=== PATIENT | female | born 1965 | race American Indian/Alaskan Native ===

== ENCOUNTER 2017-10-27 09:07 | Emergency (ER) | payer SELFPAY ==
[2017-10-27] MEDS: predniSONE 20 MG Tab PO ONE (10:53)
[2017-10-27] MEDS: Diazepam 5 MG Tab PO ONE (10:53)
[2017-10-27] MEDS: Ketorolac 60 MG/2 ML SDV IM ONE (10:53)
--- NOTE | 2017-10-27 11:00 | EDM.PDOC ---
ED HPI GENERAL MEDICAL PROBLEM - General Chief Complaint: Neck Problem Stated Complaint: neck pain Time Seen by Provider: 10/27/17 09:49 Source of Information: Reports: Patient History Limitations: Reports: No Limitations - History of Present Illness INITIAL COMMENTS - FREE TEXT/NARRATIVE: Patient comes to ER complaining of bilateral neck pain, right greater than left , that started last night. Has pain that runs up back of head. Tried both Aleve and Tylenol. Pain persists. Hurts to turn head to sides. No numbness/ tingling. No vision changes. No history of migraines, neck injury, or previous episodes of similar pain. Was doing yard work yesterday as well as power washing. 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, NSAIDS, Other Medication(s) Neck Pain Score (Numeric/FACES): 10 - Related Data Allergies Allergy/AdvReac Type Severity Reaction Status Date / Time No Known Allergies Allergy Verified 10/27/17 09:15 Home Meds: Home Meds Diazepam [Valium] 5 mg PO BID PRN #6 tab 10/27/17 [Rx] Multivitamin [Daily Multiple Vitamin] 1 tab PO DAILY 10/27/17 [History] traMADol [Ultram] 50 mg PO Q6H PRN #12 tab 10/27/17 [Rx] Past Medical History - Infectious Disease History Infectious Disease History: Reports: Chicken Pox, MRSA - Past Surgical History GI Surgical History: Reports: Cholecystectomy, Hernia, Inguinal Female Surgical History: Reports: Section Musculoskeletal Surgical History: Reports: Arthroscopic Knee Social & Family History - Tobacco Use Smoking Status *Q: Former Smoker Years of Tobacco use: 15 Packs/Tins Daily: 0.5 Used Tobacco, but Quit: No - Caffeine Use Caffeine Use: Reports: Coffee, Energy Drinks, Soda - Recreational Drug Use Recreational Drug Use: No ED ROS GENERAL - Review of Systems Review Of Systems: ROS reveals no pertinent complaints other than HPI. HEENT: Denies: Ear Discharge, Ear Pain, Eye Discharge, Rhinitis, Sinus Problem, Vertigo, Vision Change ED EXAM, UPPER BACK/NECK PAIN - Physical Exam Exam: See Below Exam Limited By: No Limitations General Appearance: Alert, WD/WN, No Apparent Distress Eye Exam: Bilateral Eye: EOMI, PERRL Ears Exam: Normal External Exam, Normal Canal Nose Exam: Normal Inspection Throat/Mouth Exam: Normal Inspection, Normal Voice, No Airway Compromise Head Exam: Atraumatic, Normocephalic. No: Scalp Tenderness, Facial Tenderness Neck Exam: Normal Alignment, Muscle Spasm (SCM muscle on right tighter than left. Tender with palpation over muscle), Paraspinous Muscle Tender (mild, bilateral posterior neck), Other (Patient able to move neck from side to side but complained of muscle soreness while doing so. ). No: Spinous Processes Tender, Tender Midline Cardiovascular/Respiratory: Regular Rate, Rhythm, Normal Breath Sounds Back Exam: Normal Inspection Extremities: Normal Range of Motion, Normal Capillary Refill Neurologic: No Motor/Sensory Deficits, Alert, Normal Mood/Affect, Oriented x 3 Psychiatric: Normal Affect, Normal Mood Skin Exam: Normal Color, Warm/Dry Course - Vital Signs Last Recorded V/S: Last Vital Signs Temp 37.1 C 10/27/17 09:07 Pulse 97 10/27/17 09:07 Resp 20 10/27/17 09:07 BP 156/93 H 10/27/17 09:07 Pulse Ox 98 10/27/17 09:07 - Orders/Labs/Meds Orders: Active Orders 24 hr Category Date Time Status C-Spine [Cervical Spine 2V or 3V] [CR] Stat Exams 10/27/17 09:50 Taken Meds: Medications Discontinued Medications Generic Name Dose Route Start Last Admin Trade Name Kimberly PRN Reason Stop Dose Admin Diazepam 5 mg 10/27/17 10:45 10/27/17 10:53 Valium. PO 10/27/17 10:46 5 mg ONETIME ONE Administration Ketorolac Tromethamine 60 mg 10/27/17 10:45 10/27/17 10:53 Toradol IM 10/27/17 10:46 60 mg ONETIME ONE Administration Prednisone 40 mg 10/27/17 10:45 10/27/17 10:53 Prednisone PO 10/27/17 10:46 40 mg ONETIME ONE Administration - Re-Assessments/Exams Free Text/Narrative Re-Assessment/Exam: Neck films show degenerative changes of C-spine Suspect acute muscle spasm. Plan at this time is Valium to help with spasm, small amount of Tramadol and give patient time to see if complaint improves. Recommend follow up with primary clinic for recheck and if needed, referral to PT if pain persists. Also discussed potential for improvement using chiropractor or massage therapy. Departure - Departure Time of Disposition: 11:01 Disposition: Home, Self-Care 01 Condition: Good Clinical Impression: Neck pain - Discharge Information Prescriptions: Diazepam [Valium] 5 mg PO BID PRN #6 tab PRN Reason: Pain traMADol [Ultram] 50 mg PO Q6H PRN #12 tab PRN Reason: Pain Referrals: PCP,Unknown [Primary Care Provider] - Forms: ED Department Discharge Additional Instructions: Gentle stretching, gentle activity today. Take Tramadol one every 6 hours as needed for pain. Take Valium 1 every 12 hours as needed for muscle spasm. OK to also take Aleve and/or Tylenol with the above medications. Ice packs may be intermittently applied to your neck to help with the discomfort. You may benefit from massage therapy as well as chiropractic manipulation. You may also benefit from referral to physical therapy if discomfort persists. You primary provider can refer you if this is needed. Follow up otherwise as needed. - My Orders Last 24 Hours: My Active Orders 10/27/17 09:50 C-Spine [Cervical Spine 2V or 3V] [CR] Stat - Assessment/Plan Last 24 Hours: My Active Orders 10/27/17 09:50 C-Spine [Cervical Spine 2V or 3V] [CR] Stat
== END 2017-10-27 11:12 | disposition home or self-care (01) ==
LOC: LL.ED 09:07
DX: M54.2 Cervicalgia (principal); Z87.891 Personal history of nicotine dependence; Z79.899 Other long term (current) drug therapy
CPT/HCPCS: 72040; 96372; 99283; 99284; A9270-GY; J1885